=== PATIENT | male | born 1965 | race Caucasian/White ===

== ENCOUNTER 2017-02-06 08:45 | Emergency (ER) | payer OTHER ==
[~2017-02-06] VITALS: Ht 165.1 cm; Wt 70.3 kg
[2017-02-06 08:47] VITALS: BP 153/87
[2017-02-06] MEDS ORDERED: HYDROCODON-ACE1 EAC2 PO ×2 (09:13→09:15)
[2017-02-06] MEDS ORDERED: MOBIC15 M1 PO ×2 (09:13→09:15)
--- NOTE | 2017-02-06 09:14 | ED UPPER/LOWER EXTREMITY COMPL ---
History of Present Illness General Chief Complaint: Fall Stated Complaint: FALL LFT SHOULDER PAIN Source: patient Exam Limitations: no limitations Vital Signs & Intake/Output Vital Signs & Intake/Output Vital Signs Date Time Temp Pulse Resp B/P Pulse O2 O2 Flow FiO2 Ox Delivery Rate 02/06 0847 97.2 75 18 153/87 99 Room Air Allergies Coded Allergies: No Known Allergies (02/06/17) Reconcile Medications Hydrocodone/Acetaminophen (Hydrocodon-Acetaminophen 5-325) 5 MG-325 MG TABLET 1-2 TAB PO Q4-6 PRN PRN pain Meloxicam (Mobic) 15 MG TABLET 1 TAB PO DAILY pain Triage Note: 51 Y/O MALE C/O L SHOULDER PAIN S/P FALL ON ICE THIS AM. STATES HE LANDED ON [place] AND THINKS HE DISLOCATED HIS L SHOULDER. PAIN WORSE WITH "LIFTING" ARM. PT MOVING ARM IN TRIAGE WITH NO SIGNS DISTRESS, STATES IF HE LIFTS ARM THE PAIN IS 10/10. DECLINES OFFER OF MEDS - "I HAVE AN EMPTY STOMACH, ILL WAIT". Triage Nurses Notes Reviewed? yes Onset: Abrupt Duration: hour(s):, constant, continues in ED Timing: single episode today Severity: moderate, severe No Modifying Factors: none HPI: 51-year-old male comes into emergency room for further evaluation of left shoulder pain. Patient reports that he slipped and fell at work and came down on his left shoulder. Patient reports that since he fell he has not been able to lift his shoulder. Sharp pain. Continuous. Denies any head injury neck pain. Denies any injury anywhere else on the body. Denies any other associated symptoms at this time. (KALEE HYATT) Past History Travel History Traveled to [place] past 21 day No Medical History Any Pertinent Medical History? see below for history Neurological: NONE EENT: NONE Cardiovascular: NONE Respiratory: NONE Gastrointestinal: NONE Hepatic: NONE Renal: NONE Musculoskeletal: NONE Psychiatric: NONE Endocrine: NONE Blood Disorders: NONE Cancer(s): NONE OUTBOUND TELEMARKETING REPRESENTATIVE/Reproductive: NONE Surgical History Surgical History: non-contributory Psychosocial History What is your primary language Ecuadorean Tobacco Use: Quit >30 days ago Family History Hx Contributory? No (KALEE HYATT) Review of Systems Review of Systems Constitutional: Reports: no symptoms. EENTM: Reports: no symptoms. Respiratory: Reports: no symptoms. Cardiovascular: Reports: no symptoms. Gastrointestinal/Abdominal: Reports: no symptoms. Genitourinary: Reports: no symptoms. Musculoskeletal: Reports: see HPI. Skin: Reports: no symptoms. Neurological/Psychological: Reports: no symptoms. Hematologic/Endocrine: Reports: no symptoms. Immunological: Reports: no symptoms. All Other Systems: Reviewed and Negative (KALEE HYATT) Physical Exam Physical Exam General Appearance: well developed/nourished, mild distress Head: atraumatic Eyes: Bilateral: normal appearance. Ears, Nose, Throat: normal ENT inspection, hearing grossly normal Neck: normal inspection Cardiovascular/Respiratory: no respiratory distress Back: normal inspection Shoulder Left: soft tissue tenderness, limited range of motion, patient not able to abduct arm actively, minimally passively, crepitus the left shoulder, positive empty can test, Neurologic/Tendon: normal sensation, normal motor functions, normal tendon functions, responds to pain, no evidence tendon injury, no pulse deficit Skin: intact, normal color, warm/dry Lymphatic: no anterior cervical mervat (KALEE HYATT) Progress Differential Diagnosis: contusion, dislocation, fracture, gout, sprain, tendon injury, labral tear, rotator cuff tear, Plan of Care: Orders Procedure Date/time Status Durable Medical Equipment 02/06 921 Active Diagnostic Imaging: Viewed by Me: Radiology Read. Discussed w/RAD: Radiology Read. Radiology Impression: EXAM TYPE: RAD - XRY-SHOULDER COMPLETE-LEFT EXAMINATION: XR SHOULDER, LEFT CLINICAL INFORMATION: Pain after fall. COMPARISON: None TECHNIQUE: Left shoulder, 3 views FINDINGS: Bones have normal alignment. There is subarticular cystic change and marginal osteophyte formation at the moderately degenerated acromioclavicular joint. Small inferior osteophytes are present at the mildly degenerated glenohumeral joint. There is enthesophyte formation of the greater tuberosity of the humerus. No acute fracture, subluxation or focal soft tissue swelling. There is a subacromial enthesophyte - - a finding that can be associated with chronic subacromial impingement disorder. The visualized left lung is clear. IMPRESSION: 1. No acute osseous injury at the left shoulder. 2. Moderate osteoarthrosis of the acromioclavicular joint and mild osteoarthrosis of the glenohumeral joint. DICTATED BY: MELIA BRIGHT MD DATE/TIME DICTATED:02/06/17917 SQL SERVER ARCHITECT:ALEJANDRO (KAELE HYATT) Departure Departure Disposition: HOME OR SELF CARE Condition: Stable Clinical Impression Primary Impression: Injury of superior glenoid labrum of left shoulder joint Secondary Impressions: Rotator cuff injury Referrals: CANDACE RAMÍREZ,CYRUS SILVERMAN MD,KORTNEY Huitron (PCP/Family) Additional Instructions: Taking Vicodin and Motrin as prescribed. Follow-up with occupational medicine as well as orthopedic doctor. Return if any concerns worsening symptoms. Ice over the area. No lifting until evaluation by orthopedic. Please go over all results of today's visit with your primary care doctor. Contact your primary care doctor to let them know you were here in the emergency room. There may be nonspecific findings which may not be related to your visit today here in the emergency room but may require further evaluation and chronic monitoring by your primary care doctor. If you had a laceration today the chance of foreign body always remains. You should follow-up with your primary care doctor for recheck in 3-5 days for a wound check. If you had an x-ray done there is a chance that a fracture could have been missed on initial read and you should follow-up with your primary care doctor for repeat x-rays if symptoms persist. If your blood pressure was elevated here in the emergency room please have rechecked by her primary care doctor within the next 48 hours by your primary care doctor. If you were prescribed a narcotic here in the emergency room or any type of controlled substances you're not allowed to drive while taking this medication or operate any type of heavy machinery. Narcotics can make you feel lightheaded dizziness nausea and can cause constipation. You may need to pick remover a stool softener. Thank you for choosing [facility] emergency room. Please return to the emergency room immediately if you have any other concerns worsening of symptoms. Departure Forms: Customer Survey General Discharge Information Prescriptions: Current Visit Scripts Hydrocodone/Acetaminophen (Hydrocodon-Acetaminophen 5-325) 1-2 TAB PO Q4-6 PRN PRN pain #15 TAB Meloxicam (Mobic) 1 TAB PO DAILY #20 TAB (KALEE HYATT) PA/BIKE TECHNICIAN Co-Sign Statement Statement: ED Attending supervision documentation- [] I saw and evaluated the patient. I have also reviewed all the pertinent lab results and diagnostic results. I agree with the findings and the plan of care as documented in the PA's/BIKE TECHNICIAN's documentation. [x] I have reviewed the ED Record and agree with the PA's/BIKE TECHNICIAN's documentation. [] Additions or exceptions (if any) to the PAs/BIKE TECHNICIAN's note and plan are summarized below: [] (JOHN KILGORE DO) Procedures Splinting Location: left shoulder Manual Alignment Performed: No Pre-Made Type: shoulder immobilizer Splint Applied By: splint applied by me Pre-Proc Neuro Vasc Exam: normal Post-Proc Neuro Vasc Exam: normal (KALEE HYATT)
--- NOTE | 2017-02-06 09:24 | RADIOLOGY REPORT ---
EXAMINATION: XR SHOULDER, LEFT CLINICAL INFORMATION: Pain after fall. COMPARISON: None TECHNIQUE: Left shoulder, 3 views FINDINGS: Bones have normal alignment. There is subarticular cystic change and marginal osteophyte formation at the moderately degenerated acromioclavicular joint. Small inferior osteophytes are present at the mildly degenerated glenohumeral joint. There is enthesophyte formation of the greater tuberosity of the humerus. No acute fracture, subluxation or focal soft tissue swelling. There is a subacromial enthesophyte -- a finding that can be associated with chronic subacromial impingement disorder. The visualized left lung is clear. IMPRESSION: 1. No acute osseous injury at the left shoulder. 2. Moderate osteoarthrosis of the acromioclavicular joint and mild osteoarthrosis of the glenohumeral joint.
== END 2017-02-06 09:36 ==
LOC: ERH 08:45
DX: S49.92XA Unspecified injury of left shoulder and upper arm, initial encounter (principal); S46.002A Unspecified injury of muscle(s) and tendon(s) of the rotator cuff of left shoulder, initial encounter; W01.0XXA Fall on same level from slipping, tripping and stumbling without subsequent striking against object, initial encounter
CPT/HCPCS: 73030-LT